=== PATIENT | male | born 1950 | race Caucasian/White ===

== ENCOUNTER 2023-06-16 03:09 | Observation (INO) | payer OTHER ==
--- OUTSIDE RECORDS SUMMARY | 2023-06-16 03:17 | XMS REPORT | Continuity of Care Document ---
Author Name Unknown Address [address] [place] [address] [facility] thconnect Address [address] [place] [address] Care Team Providers Care Pesticide Applicator Name Role Phone CTR, [facility] Primary Care Physician U TOD Baez Attending Clinician Unavailable Tod Thomson MD Attending Clinician TOD THOMSON Admitting Clinician Unavailable Payers Payer Name Policy Type Policy Number Effective Date Expirati on Date Source FORMERLY [facility] [id number] 1998 00:00:00 Allergies, Adverse Reactions, Alerts Allergy Name Allergy Type Status Severity Reaction(s) Onset Date Inactive Date Treating Clinician Comments Source NO KNOWN ALLERGIE S Drug Class Active [facility] Social History Social Habit Start Date Stop Date Quantity Comments Source Sexual orientation U [facility] Sex Assigned At 1950 00:00:00 1950 00:00:00 [facility] Smoking Status Start Date Stop Date Source Tobacco smoking consumption unknown [facility] Medications Ordered Medication Name Filled Medication Name Start Date Stop Date Current Medication? Ordering Clinician Indication Dosage Frequency Signature (SIG) Comments Components Source iopamidol (ISOVUE 370-500 mL) injection 80 mL 04-02 17:15: 00 04-02 16:21 :00 No [id number] 80mL 80 mL, Intravenou s, ONCE, 1 dose, On Wed04/02/23 at 1115, Routine [facility] Procedures Procedure Date / Time Performed Performing Clinicia n Source CT ABDOMEN PELVIS W CONTRAST 2023-04-02 16:19:00 Tod Thomson [facility] NOTICE OF PRIVACY PRACTICES 2023-04-02 15:37:58 Doctor Unassigned, [place] [facility] CONSENT/REFUSAL FOR DIAGNOSIS AND TREATMENT 2023-04-02 15:37:41 Doctor Unassigned, [place] [facility] ASSIGNMENT OF BENEFITS 2023-04-02 15:37:25 Docto r Unassigned, [place] [facility] Encounters Start Date/Time End Date/Time Encounter Type Admission Type Attending Clinicians Care Facility Care Department Encounter ID Source 2023-04-02 09:39:21 2023-04-02 23:59:00 Outpatient R TOD THOMSON [facility] [id number] [facility] 2023-04-02 09:39:21 2023-04-02 23:59:00 Hospital Encounter Tod Thomson [facility] [id number] [facility] Results Test Description Test Time Test Comments Results Result Comments Source CT ABDOMEN PELVIS W CONTRAST 2023-03 17:05:[address] ABDOMEN PELVIS W CONTRAST HISTORY: 72 years-old; Male; presented with weight loss and abdominal pain. COMPARISON: None. TECHNIQUE AND FINDINGS: Contiguous axial imaging from the level of the lungbases through the pubic symphysis was performed after the uncomplicatedadministration of 80 cc of intravenous Omnipaque contrast. Coronal andsagittal reconstructions were obtained. ?Auto mA and/or iterativereconstruction were used to reduce radiation dose. FINDINGS: LOWER THORAX: 9 mm irregular nodule with adjacent pleural thickening andretraction is seen at the lingula. No cardiomegaly. LIVER: No focal hepatic lesions. Normal contour. GALLBLADDER AND BILIARY TREE: No intra or extrahepatic biliary ductaldilation. SPLEEN: Multiple calcified granulomas are seen in the spleen. PANCREAS: No ductal dilatation or masses ADRENAL GLANDS: No adrenal lesions. KIDNEYS: No hydronephrosis, or stones. Simple bilateral renal cysts areseen. Homogeneous and symmetrical enhancement. GI TRACT: No dilation or bowel wall thickening. Large amount of stoolburden is seen within the cecum, ascending colon and transverse colon up tothe splenic flexure. PERITONEUM AND RETROPERITONEUM: No free air or fluid collection. LYMPH NODES: No intra-abdominal or pelvic lymph node enlargement. PELVIS/BLADDER: Bladder is fully distended with no wall thickening.Enlarged prostate is noted. VESSELS: Diffuse atherosclerotic calcification of the intra-abdomiopelvicvasculature BONES AND SOFT TISSUES: No suspicious lytic or sclerotic bony lesions.Fat-containing left inguinal hernia is noted. [facility]
[2023-06-16] MEDS ORDERED: ONDANSETRON 4 MG/2 ML VIAL ONE (03:56)
[2023-06-16] MEDS ORDERED: MORPHINE 4 MG/ML SYR ONE (03:57)
[2023-06-16 04:29] LABS: Anion Gap 6.9 mEq/L (5.0-15.0); BUN Blood Urea Nitrogen 16 mg/dL (7-18); Bicarbonate 29 mEq/L (21-32); Glomerular Filtration Rate 94 ml/min (=/>90); Glucose Level 127 mg/dL (74-106); Potassium 3.9 mEq/L (3.5-5.1); Sodium Level 138 mEq/L (136-145); Troponin High Sensitivity 10.6 pg/mL (<58.9)
[2023-06-16 04:30] LABS: Absolute Eosinophils 0.1 K/uL (0-0.5); Absolute Lymphocytes (CBC) 1.3 K/uL (0.7-4.9); Absolute Neutrophil 9.7 K/uL (1.8-8.0); Basophils % 0.1 % (0-1.3); Eosinophils % 0.8 % (0-4.4); Hematocrit 42.9 % (39.6-49.0); Hemoglobin 14.2 g/dL (13.6-17.9); Lymphocytes % 10.6 % (15.3-44.8); MCH 28.7 pg (27.0-35.0); MCV 87.1 fL (80-100); MPV 8.1 fL (7.6-11.3); Monocytes % 8.2 % (3.3-12.3); Neutrophils % 80.3 % (41.7-73.7); Platelets 353 thou/uL (152-406); RBC Red Blood Cell Count 4.92 M/uL (4.33-5.43); Red Cell Distribution Width 13.4 % (12.1-15.2)
[2023-06-16 04:50] LABS: PT Prothrombin Time 10.9 SECONDS (9.5-12.5); Protime INR 0.99
[2023-06-16 05:00] LABS: ALT/SGPT 17 U/L (16-61); AST/SGOT 9 U/L (15-37); Albumin 3.5 g/dL (3.4-5.0); Albumin/Globulin Ratio 0.9 (1.1-1.8); Alkaline Phosphatase 105 U/L (45-117); Bilirubin Total 0.2 mg/dL (0.2-1.0); Globulin 3.7 g/dL (2.3-3.5); Magnesium 2.3 mg/dL (1.6-2.4); NT PRO-BNP 221 pg/mL (<125); Protein, Total 7.2 g/dL (6.4-8.2)
[2023-06-16 05:01] LABS: Bilirubin Direct < 0.1 mg/dL (0-0.2); Bilirubin Indirect, Calculated ND mg/dL (0.2-0.8)
[2023-06-16] MEDS ORDERED: METOCLOPRAMIDE 10 MG/2mL INJ ONE (05:44)
[2023-06-16] MEDS ORDERED: FENTANYL CITR 100 MCG/2 ML ONE (05:45)
[2023-06-16] MEDS ORDERED: ENOXAPARIN 60 MG/0.6 ML SQ ONE (05:46)
[2023-06-16] MEDS ORDERED: NA CHLORIDE 0.9% 1,000 ML ONE (05:46)
[2023-06-16 06:03] LABS: Thyroid Stimulating Hormone 0.463 uIU/mL (0.358-3.740)
--- NOTE | 2023-06-16 06:10 | ER ---
Nurse's Notes [facility] Name: Radames Kong Age: 72 yrs Sex: Male : 1950 Arrival Date: 06/16/2023 Time: 03:09 Bed 13 Private MD: Diagnosis: Unstable angina;Cocaine abuse Presentation: 06/15 03:25 Chief complaint: Patient states: CHEST PAIN WITH INSPIRATION STARTED AT 2300. jj7 Coronavirus screen: At this time, the client does not indicate any symptoms associated with coronavirus-19. Ebola Screen: No symptoms or risks identified at this time. Initial Sepsis Screen: Does the patient meet any 2 criteria? No. Patient's initial sepsis screen is negative. Does the patient have a suspected source of infection? No. Patient's initial sepsis screen is negative. Risk Assessment: Do you want to hurt yourself or someone else? Patient reports no desire to harm self or others. Onset of symptoms was June 15, 2023. 03:25 Method Of Arrival: EMS: [facility] j7 03:25 Acuity: OMAR 3 jj7 03:35 Care prior to arrival: Medication(s) given: ASA, 81 mg, x 3. jj7 Triage Assessment: 03:25 General: Appears in no apparent distress. uncomfortable, Behavior is calm, cooperative, jj7 appropriate for age. Pain: Complains of pain in chest. Cardiovascular: Reports chest pain, Capillary refill < 3 seconds Patient's skin is warm and dry. Historical: - Allergies: 03:38 No Known Allergies; jj7 - PMHx: 03:38 Hypertensive disorder; Cerebrovascular accident; Hypercholesterolemia; LEFT BLOCKED jj7 CAROTID; - PSHx: 03:38 Appendectomy; NECK; BACK; jj7 - Immunization history:: Adult Immunizations not up to date, Client reports having NOT received the Covid vaccine. Pneumococcal vaccine is not up to date, Flu vaccine is not up to date. - Infectious Disease History:: Denies. - Social history:: Smoking status: Patient reports the use of cigarette tobacco products, smokes one pack cigarettes per day. Patient/guardian denies using alcohol, street drugs, IV drugs. - Family history:: not pertinent. Screenin:25 [facility] ED Fall Risk Assessment (Adult) History of falling in the last 3 months, jj7 including since admission No falls in past 3 months (0 pts) Confusion or Disorientation No (0 pts) Intoxicated or Sedated No (0 pts) Impaired Gait No (0 pts) Mobility Assist Device Used No (0 pt) Altered Elimination No (0 pt) Score/Fall Risk Level 0 - 2 = Low Risk Oriented to surroundings, Maintained a safe environment, Educated pt \T\ family on fall prevention, incl call for assistance when getting out of bed. Abuse screen: Denies threats or abuse. Nutritional screening: No deficits noted. Tuberculosis screening: No symptoms or risk factors identified. Assessment: 03:25 Reassessment: SEE TRIAGE ASSESSSMENT. Pain: Complains of pain in chest Pain radiates to jj7 left arm Pain began 4 hours ago. Neuro: No deficits noted. Cardiovascular:. Cardiovascular: Reports chest pain. 04:00 General: Appears in no apparent distress. uncomfortable, Behavior is calm, cooperative. jw7 04:00 Pain: Complains of pain in chest Pain radiates to left arm Pain currently is 8 out of jw7 10 on a pain scale. Quality of pain is described as radiating, sharp, Pain began 4 hours ago. Is continuous. Neuro: Level of Consciousness is awake, alert, obeys commands, Oriented to person, place, time, situation. Cardiovascular: Heart tones S1 S2 present Capillary refill < 3 seconds Clubbing of nail beds is absent JVD is absent Patient's skin is warm and dry. Respiratory: Airway is patent Trachea midline Respiratory effort is even, unlabored, Respiratory pattern is regular, symmetrical. GI: Abdomen is flat, Bowel sounds present X 4 quads. Abd is soft and non tender X 4 quads. : No deficits noted. No signs and/or symptoms were reported regarding the genitourinary system. EENT: No deficits noted. No signs and/or symptoms were reported regarding the EENT system. Derm: Skin is intact, is healthy with good turgor, Skin is dry, Skin is normal, Skin temperature is warm. Musculoskeletal: Circulation, motion, and sensation intact. Range of motion: intact in all extremities. 05:00 Reassessment: Patient appears in no apparent distress at this time. No changes from jw7 previously documented assessment. Patient and/or family updated on plan of care and expected duration. Pain level reassessed. Patient is alert, oriented x 3, equal unlabored respirations, skin warm/dry/pink. 06:00 Reassessment: Patient appears in no apparent distress at this time. Patient and/or jw7 family updated on plan of care and expected duration. Pain level reassessed. Patient is alert, oriented x 3, equal unlabored respirations, skin warm/dry/pink. Patient states symptoms have improved. Vital Signs: 03:25 BP 159 / 67; Pulse 79; Resp 18; Temp 98.1; Pulse Ox 98% ; Weight 69.4 kg; Height 5 ft. j7 5 in. ; 04:00 BP 153 / 86; Pulse 79; Resp 19 S; Pulse Ox 98% on R/A; jw7 05:00 BP 126 / 49; Pulse 82; Resp 25 S; Pulse Ox 96% on R/A; jw7 06:30 BP 154 / 67; Pulse 93; Resp 21 S; Pulse Ox 96% on R/A; jw7 08:00 BP 142 / 66; Pulse 94; Resp 16; Temp 97.9; Pulse Ox 99% ; bp 03:25 Body Mass Index 25.46 (69.40 kg, 165.1 cm) j7 Jacqueline Coma Score: 06:10 Eye Response: spontaneous(4). Motor Response: obeys commands(6). Verbal Response: sp4 oriented(5). Total: 15. ED Course: 03:15 Patient has correct armband on for positive identification. Placed in gown. Bed in low pf1 position. Call light in reach. Side rails up X 1. 03:15 Client placed on continuous cardiac and pulse oximetry monitoring. NIBP monitoring pf1 applied. job foreman on. Door closed. Noise minimized. Moved to private room. Warm blanket given. Pillow given. 03:17 No provider procedures requiring assistance completed. EKG done, by ED staff, reviewed pf1 by Cornelius Cox MD. 03:22 Patient arrived in ED. sp4 03:22 Cornelius Cox MD is Attending Physician. sp4 03:25 Maintain EMS IV. Dressing intact. Good blood return noted. Site clean \T\ dry. Gauge \T\ jj 7 site: 20G RIGHT AC. 03:25 Arm band placed on right wrist. Patient placed in an exam room, on a stretcher, on jj7 production scheduler. EKG completed in triage. Results shown to MD. 03:25 Provided Education on: USE OF CALL WELCH. jj7 03:38 Triage completed. jj7 03:56 Basic Metabolic Panel Sent. pf1 03:56 CBC with Diff Sent. pf1 03:56 Troponin HS Sent. pf1 03:56 Initial lab(s) drawn, by ED staff, sent to lab. pf1 04:00 O2 via RA. jw7 04:01 Basic Metabolic Panel Sent. jj7 04:01 CBC with Diff Sent. jj7 04:01 Troponin HS Sent. jj7 04:15 CXR XRAY In Process Unspecified. EDMS 05:34 Marsha Arambula, RN is Primary Nurse. jw7 05:48 Initiated transfer to [place] but was declined due to capacity. rv1 06:09 Tan Akins is Hospitalizing Provider. sp4 07:24 Primary Nurse role handed off by Marsha Arambula, RN bp 07:24 Nigel Hall, SP is Primary Nurse. bp 08:12 Patient admitted, IV remains in place. bp Administered Medications: 04:01 Drug: morphine IVP or IV 4 mg IVP once over 4 mins Route: IVP; Infused Over: 4 mins; jj7 Site: right antecubital; 06:00 Follow up: Response: No adverse reaction; Marked relief of symptoms; Pain is decreased jw7 04:02 Drug: Ondansetron IVP 4 mg IVP once; over 2 minutes Route: IVP; Site: right antecubital;jj7 06:00 Follow up: Response: No adverse reaction; Marked relief of symptoms; Nausea is decreasedjw7 06:09 Drug: metoCLOPramide IVP 10 mg IVP once; over 1 to 2 minutes Route: IVP; Site: right jw antecubital; 06:54 Follow up: Response: No adverse reaction; Marked relief of symptoms; Nausea is decreasedjw7 06:09 Drug: Enoxaparin Sub-Q 70 mg Sub-Q once Route: Sub-Q; Site: abdomen; jw7 06:54 Follow up: Response: No adverse reaction jw7 06:09 Drug: NS 0.9% IV 1000 ml IV at 75 ml/hr continuous Route: IV; Rate: 75 ml/hr; Site: jw right antecubital; 08:12 Follow up: IV Status: Infusion continued upon admission bp 06:10 Drug: fentaNYL (PF) IVP 50 mcg IVP once Route: IVP; Site: right antecubital; jw7 06:54 Follow up: Response: No adverse reaction; Marked relief of symptoms; Pain is decreased jw7 Medication: 03:25 VIS not applicable for this client. jj7 Outcome: 06:10 Decision to Hospitalize by Provider. sp4 08:11 Admitted to ER Hold. Please see [facility] for further documentation. bp 08:11 Condition: stable 08:11 Instructed on the need for admit, 08:58 Patient left the ED. iw Signatures: Dispatcher [employer] EDMS Sharita Sexton RN RN iw Nigel Hall RN RN Marsha Wyman RN RN Henry Mistry RN RN jjRobyn Hanson RN RN pf1 Pham Stewart rv1 Cornelius Cox MD MD sp4
--- NOTE | 2023-06-16 06:10 | EDPHYS ---
Physician Documentation [facility] Name: Radames Kong Age: 72 yrs Sex: Male : 1950 Arrival Date: 06/16/2023 Time: 03:09 Bed 13 Private MD: ED Physician Cornelius Cox HPI: 06/15 04:22 This 72 yrs old Male presents to ER via EMS with complaints of Chest Pain. sp4 06:10 72-year-old male with history of hypertension CVA hypercholesterolemia and also tobacco sp4 use disorder, presents with acute onset left-sided moderate sharp stabbing chest pain without physical exertion. Historical: - Allergies: 03:38 No Known Allergies; jj7 - PMHx: 03:38 Hypertensive disorder; Cerebrovascular accident; Hypercholesterolemia; LEFT BLOCKED jj7 CAROTID; - PSHx: 03:38 Appendectomy; NECK; BACK; jj7 - Immunization history:: Adult Immunizations not up to date, Client reports having NOT received the Covid vaccine. Pneumococcal vaccine is not up to date, Flu vaccine is not up to date. - Infectious Disease History:: Denies. - Social history:: Smoking status: Patient reports the use of cigarette tobacco products, smokes one pack cigarettes per day. Patient/guardian denies using alcohol, street drugs, IV drugs. - Family history:: not pertinent. ROS: 06:10 Constitutional: Negative for fever, chills, and weight loss, positive chest pain sp4 06:10 All other systems are negative, Exam: 06:10 Constitutional: This is a well developed, well nourished patient who is awake, alert, sp4 and in no acute distress. Head/Face: Normocephalic, atraumatic. Eyes: Pupils equal round and reactive to light, extra-ocular motions intact. Lids and lashes normal. Conjunctiva and sclera are not injected. Cornea within normal limits. Periorbital areas with no swelling, redness, or edema. ENT: Nares patent. No nasal discharge, no septal abnormalities noted. Tympanic membranes are normal and external auditory canals are clear. Oropharynx with no redness, swelling, or masses, exudates, or evidence of obstruction, uvula midline. Mucous membranes moist. Neck: Trachea midline, no thyromegaly or masses palpated, and no cervical lymphadenopathy. Supple, full range of motion without nuchal rigidity, or vertebral point tenderness. Chest/axilla: Normal chest wall appearance and motion. Nontender with no deformity. No lesions are appreciated. Cardiovascular: Regular rate and rhythm with a normal S1 and S2. No gallops, murmurs, or rubs. Normal PMI, no JVD. No pulse deficits. Respiratory: Lungs have equal breath sounds bilaterally, clear to auscultation and percussion. No rales, rhonchi or wheezes noted. No increased work of breathing, no retractions or nasal flaring. Abdomen/GI: Soft, with normal bowel sounds. No distension or tympany. No guarding or rebound. No evidence of tenderness throughout. Back: No spinal tenderness. No costovertebral tenderness. Skin: Warm, dry with normal turgor. Normal color with no rashes, no lesions, and no evidence of cellulitis. MS/ Extremity: Pulses equal, no cyanosis. Neurovascular intact. Full, normal range of motion. Neuro: Awake and alert, GCS 15, oriented to person, place, time, and situation. Cranial nerves II-XII grossly intact. Motor strength 5/5 in all extremities. Sensory grossly intact. Psych: Awake, alert, with orientation to person, place and time. Behavior, mood, and affect are within normal limits 06:10 ECG was reviewed by the Attending Physician. EKG time 0 317 normal sinus rhythm at rate of 82, otherwise unremarkable Vital Signs: 03:25 BP 159 / 67; Pulse 79; Resp 18; Temp 98.1; Pulse Ox 98% ; Weight 69.4 kg; Height 5 ft. [facility] 5 in. ; 04:00 BP 153 / 86; Pulse 79; Resp 19 S; Pulse Ox 98% on R/A; jw7 05:00 BP 126 / 49; Pulse 82; Resp 25 S; Pulse Ox 96% on R/A; jw7 06:30 BP 154 / 67; Pulse 93; Resp 21 S; Pulse Ox 96% on R/A; jw7 08:00 BP 142 / 66; Pulse 94; Resp 16; Temp 97.9; Pulse Ox 99% ; bp 03:25 Body Mass Index 25.46 (69.40 kg, 165.1 cm) [facility] Jacqueline Coma Score: 06:10 Eye Response: spontaneous(4). Motor Response: obeys commands(6). Verbal Response: sp4 oriented(5). Total: 15. MDM: 04:22 Patient medically screened. sp4 05:08 ED course: CLINICAL HISTORY: CHEST PAIN COMPARISON: None. TECHNIQUE: XR CHEST 1 VIEW sp4 06/16/2023 4:03 AM CDT FINDINGS: Cardiac silhouette is normal in size. Lungs are clear without consolidation, atelectasis, mass or edema. There is no pleural effusion. There is no pneumothorax. There are no acute osseous findings. IMPRESSION: Clear lungs. Electronically signed by: Chaim Anguiano MD 06/16/2023 04:49 AM. 05:43 ED course: CLINICAL HISTORY: CHEST PAIN COMPARISON: None. TECHNIQUE: XR CHEST 1 VIEW 4 06/16/2023 4:03 AM CDT FINDINGS: Cardiac silhouette is normal in size. Lungs are clear without consolidation, atelectasis, mass or edema. There is no pleural effusion. There is no pneumothorax. There are no acute osseous findings. IMPRESSION: Clear lungs. . 06:10 Differential diagnosis: acute myocardial infarction, acute pericarditis, anxiety, sp4 coronary artery disease chest wall pain, congestive heart failure. HEART Score: History: Moderately Suspicious (1), ECG: Non specific repolarization disturbance / LBTB / PM (1), Age: > or = 65 years (2), Risk Factors: > or = 3 Risk factors for atherosclerotic disease (2), Troponin: < or = 1 x Normal Limit (0), Total Score = 6. The patient was not given aspirin in the Emergency Department. Administered by EMS. Data reviewed: vital signs, nurses notes, EMS record, lab test result(s), EKG, radiologic studies, plain films. Consideration of Admission/Observation Patient was admitted/placed on observation. Escalation of care including admission/observation considered. Management of patient was discussed with the following: Hospitalist: Admission team. Theology Professor: Bowstring Maker. ED course: Patient warrants admission for further investigation hospital. 06/15 03:23 Order name: Basic Metabolic Panel; Complete Time: 06:08 pf1 06/15 03:23 Order name: CBC with Diff; Complete Time: 04:57 pf1 06/15 03:23 Order name: Troponin HS; Complete Time: 06:08 pf1 06/15 04:23 Order name: PT-INR; Complete Time: 04:57 sp4 06/15 04:49 Order name: Liver (Hepatic) Function; Complete Time: 06:08 EDMS 06/15 04:49 Order name: NT PRO-BNP; Complete Time: 06:08 EDMS 06/15 04:49 Order name: Magnesium; Complete Time: 06:08 EDMS 06/15 05:18 Order name: Urine Drug Screen; Complete Time: 06:34 sp4 06/15 05:18 Order name: Alcohol Level; Complete Time: 06:03 sp4 06/15 05:45 Order name: T4 Free; Complete Time: 06:08 EDMS 06/15 05:45 Order name: Thyroid Stimulating Hormone; Complete Time: 06:08 EDMS 06/15 08:37 Order name: Lipid Profile EDMS 06/15 04:03 Order name: CXR XRAY jj7 06/15 03:23 Order name: EKG; Complete Time: 03:23 pf1 06/15 03:23 Order name: Cardiac monitoring; Complete Time: 03:32 pf1 06/15 03:23 Order name: EKG - Nurse/Tech; Complete Time: 03:23 pf1 06/15 03:23 Order name: IV Saline Lock; Complete Time: 03:47 pf1 06/15 03:23 Order name: Labs collected and sent; Complete Time: 03:56 pf1 06/15 03:23 Order name: O2 Per Protocol; Complete Time: 03:32 pf1 06/15 03:23 Order name: O2 Sat Monitoring; Complete Time: 03:32 pf1 EC:10 Rate is 82 beats/min. Rhythm is regular, Normal Sinus Rhythm. QRS [place] is Normal. MT sp4 interval is normal. QRS interval is normal. No Q waves. T waves are Normal. No ST changes noted. Clinical impression: No evidence of ischemia. Interpreted by me. Reviewed by me. Administered Medications: 04:01 Drug: morphine IVP or IV 4 mg IVP once over 4 mins Route: IVP; Infused Over: 4 mins; jj7 Site: right antecubital; 06:00 Follow up: Response: No adverse reaction; Marked relief of symptoms; Pain is decreased jw7 04:02 Drug: Ondansetron IVP 4 mg IVP once; over 2 minutes Route: IVP; Site: right antecubital;jj7 06:00 Follow up: Response: No adverse reaction; Marked relief of symptoms; Nausea is decreasedjw7 06:09 Drug: metoCLOPramide IVP 10 mg IVP once; over 1 to 2 minutes Route: IVP; Site: right jw7 antecubital; 06:54 Follow up: Response: No adverse reaction; Marked relief of symptoms; Nausea is decreasedjw7 06:09 Drug: Enoxaparin Sub-Q 70 mg Sub-Q once Route: Sub-Q; Site: abdomen; jw7 06:54 Follow up: Response: No adverse reaction jw 06:09 Drug: NS 0.9% IV 1000 ml IV at 75 ml/hr continuous Route: IV; Rate: 75 ml/hr; Site: jw7 right antecubital; 08:12 Follow up: IV Status: Infusion continued upon admission bp 06:10 Drug: fentaNYL (PF) IVP 50 mcg IVP once Route: IVP; Site: right antecubital; jw7 06:54 Follow up: Response: No adverse reaction; Marked relief of symptoms; Pain is decreased jw7 Disposition Summary: 06/16/23 06:10 Hospitalization Ordered Notes: Hospitalization Status: Inpatient Admission sp4 Provider: Tan Akins spAllie Condition: Stable sp4 Problem: new sp4 Symptoms: have improved sp4 Bed/Room Type: Standard sp4 Location: Telemetry/MedSurg (Inpatient)(06/16/23 08:27) Room Assignment: 413(06/16/23 08:27) bd Diagnosis - Unstable angina sp4 - Cocaine abuse sp4 Forms: - Medication Reconciliation Form sp4 - SBAR form sp4 - Leadership Thank You Letter sp4 Signatures: Dispatcher [employer] EDMS Pat Hernandez Jodi, RN RN jw7 Henry Mcfarland RN RN jj7 Robyn Kang RN RN pf1 Cornelius Cox MD MD sp4 Nigel Hall RN bp Corrections: (The following items were deleted from the chart) 04:03 04:03 Chest Single View+RAD.RAD.BRZ ordered. EDMS EDMS 04:49 04:23 HEPATIC FUNCTION+C.LAB.BRZ ordered. EDMS EDMS 04:49 04:23 MAGNESIUM+C.LAB.BRZ ordered. EDMS EDMS 04:49 04:23 PROBNP+C.LAB.BRZ ordered. EDMS EDMS 05:18 05:18 URINE DRUG SCREEN+UC.LAB.BRZ ordered. EDMS EDMS 05:18 05:18 ETHANOL+C.LAB.BRZ ordered. EDMS EDMS 05:44 05:18 THYROID STIMULAT HORMONE+C.LAB.BRZ ordered. EDMS EDMS 05:44 05:18 T4 FREE+C.LAB.BRZ ordered. EDMS EDMS 07:15 06:10 Telemetry/MedSurg (Inpatient) sp4 bd 07:15 06:10 sp4 bd 08:27 07:15 [facility] ER HOLD bd bd 08:27 07:15 ERHOLD- bd bd
[2023-06-16 06:32] LABS: Barbiturates NEGATIVE (NEGATIVE); Benzodiazepines NEGATIVE (NEGATIVE); Cocaine POSITIVE (NEGATIVE); METHAMPHETAM NEGATIVE (NEGATIVE); Methadone NEGATIVE (NEGATIVE); Opiates NEGATIVE (NEGATIVE); Phencyclidine NEGATIVE (NEGATIVE); THC Cannibis POSITIVE (NEGATIVE)
[2023-06-16] MEDS ORDERED: NITROGLYCERIN 0.4 MG/TAB SL PRN (07:22)
--- NOTE | 2023-06-16 07:40 | P.HP ---
Certification for Inpatient Patient admitted to: Observation With expected LOS: <2 Midnights Practitioner: I am a practitioner with admitting privileges, knowledge of patient current condition, hospital course, and medical plan of care. Services: Services provided to patient in accordance with Admission requirements found in Title 42 Section 412.3 of the Code of Federal Regulations Patient History Date of Service: 06/16/23 Reason for admission: Chest pain/tightness History of Present Illness: Patient is a 72-year-old male with a past medical history of hypertension, hyperlipidemia COPD who presented to the ED with complaints of chest pain at rest. Pain does not radiate, worsened on inspiration. Associated with shortness of breath. He denies having chest pain in the past. Initial troponin negative, BNP 221. Patient is an every day smoker about 1 pack/day, he denies any illicit drug use however his urine drug screen positive for cocaine and THC. ED provider wishes to admit for unstable angina. Allergies tramadol Adverse Reaction (Verified 06/16/23 07:11) Home medications list reviewed: Yes (Patient does not know the names of his medications) - Past Medical/Surgical History Has patient received pneumonia vaccine in the past: No Diabetic: No -: Hypertension -: Hyperlipidemia -: COPD -: CVA Past Surgical History: Patient denies surgical history -: Appendectomy - Social History Smoking Status: Heavy Tobacco smoker (>10 cigarettes/day) Alcohol use: No CD- Drugs: No Caffeine use: Yes Place of Residence: Home Review of Systems 10-point ROS is otherwise unremarkable Respiratory: Shortness of Breath Cardiovascular: Chest Pain Physical Examination - Physical Exam General: Alert, In no apparent distress, Oriented x3 HEENT: Atraumatic, Normocephalic Respiratory: Clear to auscultation bilaterally, Normal air movement, Other (Unlabored respirations on room air) Gastrointestinal: Normal bowel sounds, Soft and benign, No tenderness Musculoskeletal: No swelling Integumentary: No rashes, No breakdown Neurological: Normal speech, Normal strength at 5/5 x4 extr - Studies Laboratory Data (last 24 hrs) 06/16/23 06/16/23 06/16/23 04:23 03:54 03:54 WBC 12.00 H Hgb 14.2 Hct 42.9 Plt Count 353 PT 10.9 INR 0.99 Sodium Potassium BUN Creatinine Glucose Magnesium Cancelled Total Bilirubin Cancelled AST Cancelled ALT Cancelled Alkaline Phosphatase Cancelled 06/16/23 03:54 WBC Hgb Hct Plt Count PT INR Sodium 138 Potassium 3.9 BUN 16 Creatinine 0.81 Glucose 127 H Magnesium 2.3 Total Bilirubin 0.2 AST 9 L ALT 17 Alkaline Phosphatase 105 Assessment and Plan - Plan Problem list Unstable angina Hypertension Hyperlipidemia COPD Unstable angina -chest pain likely secondary to cocaine use -EKG normal -Serial troponins q6h - supplemental O2 as needed; Nitroglycerin PRN; Aspirin daily - statin therapy - lipid panel pending - Obtain echo - Cardiology consulted Hypertension Hyperlipidemia -Verify home medications prior to restart Dispo Home in 24 hours Full code - Advance Directives Does patient have a Living Will: No Does patient have a Durable POA for Healthcare: No Time Spent Managing Pts Care (In Minutes): 55
[2023-06-16 07:57] VITALS: BMI 22.6
[2023-06-16 09:44] VITALS: O2SAT 98
[2023-06-16] MEDS ORDERED: MORPHINE 4 MG/ML SYR IV PRN (10:00)
--- NOTE | 2023-06-16 10:29 | RAD REPORT ---
EXAM DESCRIPTION: RAD - Chest Single View - 06/16/2023 4:13 am CLINICAL HISTORY: CHEST PAIN COMPARISON: None. TECHNIQUE: XR CHEST 1 VIEW 06/16/2023 4:03 AM CDT FINDINGS: Cardiac silhouette is normal in size. Lungs are clear without consolidation, atelectasis, mass or edema. There is no pleural effusion. There is no pneumothorax. There are no acute osseous fin dings. IMPRESSION: Clear lungs. Electronically signed by: Chaim Anguiano MD 06/16/2023 04:49 AM CDT Due to temporary technical issues with the PACS/Fluency reporting system, reports are being signed by the in house radiologist without review as a courtesy to ensure prompt reporting. The interpreting r adiologist is fully responsible for the content of the report.
--- NOTE | 2023-06-16 11:22 | P.CNS ---
Date of Consult: 06/16/23 Chief Complaint: Chest pain/tightness History of Present Illness: Patient with PMH of HTN, HLD drug abuse presented with chest pain, shart in nature that started last night, associated with SOB, no such symptoms in the past, no palpitations, no syncope, patient admit to marijuana and denies cocaine first but then he admitted that he sniff cocaine for the last 2 years as it helps him with stress. Allergies tramadol Adverse Reaction (Verified 06/16/23 07:11) - Past Medical/Surgical History Diabetic: No -: Hypertension -: Hyperlipidemia -: COPD -: CVA -: Appendectomy - Social History Smoking Status: Current every day smoker Alcohol use: No CD- Drugs: No Caffeine use: Yes Place of Residence: Home Review of Systems 10-point ROS is otherwise unremarkable Physical Examination Temp Pulse Resp BP Pulse Ox 97.9 F 94 H 16 142/66 H 93 06/16/23 08:00 06/16/23 08:00 06/16/23 08:00 06/16/23 08:00 06/16/23 07:36 General: Alert, Oriented x3 HEENT: Atraumatic Neck: Supple Respiratory: Clear to auscultation bilaterally Cardiovascular: No edema, Normal S1 S2 Gastrointestinal: Normal bowel sounds Laboratory Data (last 24 hrs) 06/16/23 06/16/23 06/16/23 05:54 04:23 03:54 WBC Hgb Hct Plt Count PT 10.9 INR 0.99 Sodium Potassium BUN Creatinine Glucose Magnesium Cancelled Total Bilirubin Cancelled AST Cancelled ALT Cancelled Alkaline Phosphatase Cancelled Triglycerides 119 Cholesterol 233 H HDL Cholesterol 55 Cholesterol/HDL Ratio 4.24 06/16/23 06/16/23 03:54 03:54 WBC 12.00 H Hgb 14.2 Hct 42.9 Plt Count 353 PT INR Sodium 138 Potassium 3.9 BUN 16 Creatinine 0.81 Glucose 127 H Magnesium 2.3 Total Bilirubin 0.2 AST 9 L ALT 17 Alkaline Phosphatase 105 Triglycerides Cholesterol HDL Cholesterol Cholesterol/HDL Ratio - Problems (1) Chest pain Current Visit: Yes Status: Acute Plan: Most likely secondary to recent cocaine and marijuana use, EKG is normal and Troponin negative. consulted patient in details about risks of drug use and that he need to stop. resume patient Norvasc and lisinopril for BP and angina. no need for further cardiac work up at this point. patient need to shows compliance with drug abstinence and taking medications before doing further cardiac work up which can be done as outpatient. (2) HTN (hypertension) Current Visit: Yes Status: Acute Plan: resume patient home dose of lisinopril and Norvasc. (3) HLD (hyperlipidemia) Current Visit: Yes Status: Acute Plan: LDL is elevated. Start Crestor 20 mg daily
--- NOTE | 2023-06-16 13:06 | EKG ---
Test Date: 2023-06-16 Test Time: 03:17:25 Certified Energy Manager: JAVI MEASUREMENT RESULTS: Intervals: Rate: 82 [place]: 154 QRSD: 92 QT: 350 QTc: 408 [place]: P: 72 [place]: 154 QRS: -52 T: 93 INTERPRETIVE STATEMENTS: Normal sinus rhythm Left anterior fascicular block Anteroseptal infarct, age undetermined T wave abnormality, consider lateral ischemia Abnormal ECG No previous ECG available for comparison Electronically Signed On 06-16-23 13:05:10 CDT by Jesu Em
--- NOTE | 2023-06-16 13:38 | ECHO ---
HEIGHT: 5 ft 5 in WEIGHT: 153 lb 0.013 oz DATE OF STUDY: 06/16/[address]: Lis Nevarez NP 2-DIMENSIONAL: YES M.MODE: YES DOPPLER: YES COLOR FLOW: YES TDS: PORTABLE: YES DEFINITY: BUBBLE STUDY: DIAGNOSIS: CHEST PAIN CARDIAC HISTORY: CATHERIZATION: NO SURGERY: NO PROSTHETIC VALVE: NO PACEMAKER: NO MEASUREMENTS (cm) DIASTOLIC (NORMALS) SYSTOLIC (NORMALS) IVSd 1.1 (0.6-1.2) LA Diam 1.9 (1.9-4.0) LVEF 53% LVIDd 3.3 (3.5-5.7) LVIDs 2.4 (2.0-3.5) %FS 27% LVPWd 1.2 (0.6-1.2) Ao Diam 3.0 (2.0-3.7) 2 DIMENSIONAL ASSESSMENT: RIGHT ATRIUM: NORMAL LEFT ATRIUM: NORMAL RIGHT VENTRICLE: NORMAL LEFT VENTRICLE: NORMAL TRICUSPID VALVE: MILD TRICUSPID REGURGITATION MITRAL VALVE: NORMAL PULMONIC VALVE: NORMAL AORTIC VALVE: NORMAL PERICARDIAL EFFUSION: NONE AORTIC ROOT: NORMAL LEFT VENTRICULAR WALL MOTION: NORMAL DOPPLER/COLOR FLOW: MILD TRICUSPID REGURGITATION COMMENTS: 1. NORMAL LEFT VENTRICULAR EJECTION FRACTION 55-60% 2. NORMAL WALL MOTION 3. GRADE I DIASTOLIC DYSFUNCTION 4. MILD TRICUSPID REGURGITATION TECHNOLOGIST: DANIEL COLLINS
[2023-06-16 16:51] VITALS: BP 149/63; TEMP 100
--- NOTE | 2023-06-16 18:26 | P.DS ---
Admission Date: 06/16/23 Discharge Date: 06/16/23 Reason for Admission: Chest pain/tightness Brief History of Present Illness: Patient is a 72-year-old male with a past medical history of hypertension, hyperlipidemia COPD who presented to the ED with complaints of chest pain at rest. Pain does not radiate, worsened on inspiration. Associated with shortness of breath. He denies having chest pain in the past. Initial troponin negative, BNP 221. Patient is an every day smoker about 1 pack/day, he denies any illicit drug use however his urine drug screen positive for cocaine and THC. ED provider wishes to admit for unstable angina. Hospital Course: Problem list Unstable angina Hypertension Hyperlipidemia COPD Presented with chest pain at rest. Troponins negative, BNP slightly elevated. EKG was normal. Cardiology was consulted for unstable angina. Urine drug screen positive for cocaine and THC. Chest pain likely secondary to cocaine use. Patient since has had improvement of chest pain without requiring nitro or morphine. Deemed stable for discharge. New medications -Crestor 20mg PO at bedtime Continue your home Norvasc and lisinopril Follow-ups -follow-up with your primary care physician within 1 week. Please call to schedule appointment. Consults: - Cardiology: Dr. Guaman Physical Exam General: Alert, In no apparent distress, Oriented x3 HEENT: Atraumatic, Normocephalic Respiratory: Clear to auscultation bilaterally, Normal air movement, Other (Unlabored respirations on room air) Gastrointestinal: Normal bowel sounds, Soft and benign, No tenderness Musculoskeletal: No swelling Integumentary: No rashes, No breakdown Neurological: Normal speech, Normal strength at 5/5 x4 extr <Lis Nevarez - Last Filed: 06/16/23 18:24> Admission Date: 06/16/23 Discharge Date: 06/17/23 Hospital Course: Plan of care discussed with Ms. Nevarez. Patient evaluated by cardiology Dr. Guaman, troponins x 3 negative, ACS ruled out. Patient toxicology screen was positive for cocaine and the chest pain might have been related to the cocaine use. Patient deemed stable for discharge per Dr. Guaman. <luz elena kent - Last Filed: 06/17/23 06:53> Disposition: ROUTINE DISCHARGE Discharge Condition: GOOD Vital Signs/Physical Exam: Temp Pulse Resp BP Pulse Ox 100 F 85 15 149/63 H 92 06/16/23 16:00 06/16/23 16:00 06/16/23 16:00 06/16/23 16:00 06/16/23 16:00 Laboratory Data at Discharge: WBC 12.00 thou/uL (4.3-10.9) H 06/16/23 03:54 Hgb 14.2 g/dL (13.6-17.9) 06/16/23 03:54 Hct 42.9 % (39.6-49.0) 06/16/23 03:54 Plt Count 353 thou/uL (152-406) 06/16/23 03:54 PT 10.9 SECONDS (9.5-12.5) 06/16/23 03:54 INR 0.99 06/16/23 03:54 Sodium 138 mEq/L (136-145) 06/16/23 03:54 Potassium 3.9 mEq/L (3.5-5.1) 06/16/23 03:54 BUN 16 mg/dL (7-18) 06/16/23 03:54 Creatinine 0.81 mg/dL (0.70-1.30) 06/16/23 03:54 Glucose 127 mg/dL (74-106) H 06/16/23 03:54 Magnesium Cancelled 06/16/23 04:23 Total Bilirubin Cancelled 06/16/23 04:23 AST Cancelled 06/16/23 04:23 ALT Cancelled 06/16/23 04:23 Alkaline Phosphatase Cancelled 06/16/23 04:23 Triglycerides 119 mg/dL (<150) 06/16/23 05:54 Cholesterol 233 mg/dL (<200) H 06/16/23 05:54 HDL Cholesterol 55 mg/dL (40-60) 06/16/23 05:54 Cholesterol/HDL Ratio 4.24 06/16/23 05:54 <Lis Nevarez - Last Filed: 06/16/23 18:24> Vital Signs/Physical Exam: Temp Pulse Resp BP Pulse Ox 100 F 85 15 149/63 H 92 06/16/23 16:00 06/16/23 16:00 06/16/23 16:00 06/16/23 16:00 06/16/23 16:00 Laboratory Data at Discharge: WBC 12.00 thou/uL (4.3-10.9) H 06/16/23 03:54 Hgb 14.2 g/dL (13.6-17.9) 06/16/23 03:54 Hct 42.9 % (39.6-49.0) 06/16/23 03:54 Plt Count 353 thou/uL (152-406) 06/16/23 03:54 PT 10.9 SECONDS (9.5-12.5) 06/16/23 03:54 INR 0.99 06/16/23 03:54 Sodium 138 mEq/L (136-145) 06/16/23 03:54 Potassium 3.9 mEq/L (3.5-5.1) 06/16/23 03:54 BUN 16 mg/dL (7-18) 06/16/23 03:54 Creatinine 0.81 mg/dL (0.70-1.30) 06/16/23 03:54 Glucose 127 mg/dL (74-106) H 06/16/23 03:54 Magnesium Cancelled 06/16/23 04:23 Total Bilirubin Cancelled 06/16/23 04:23 AST Cancelled 06/16/23 04:23 ALT Cancelled 06/16/23 04:23 Alkaline Phosphatase Cancelled 06/16/23 04:23 Triglycerides 119 mg/dL (<150) 06/16/23 05:54 Cholesterol 233 mg/dL (<200) H 06/16/23 05:54 HDL Cholesterol 55 mg/dL (40-60) 06/16/23 05:54 Cholesterol/HDL Ratio 4.24 06/16/23 05:54 <luz elena kent - Last Filed: 06/17/23 06:53> Diet: AHA Activity: Ad holley <Lis Nevarez - Last Filed: 06/16/23 18:24> <luz elena kent - Last Filed: 06/17/23 06:53> Home Medications: Rosuvastatin Calcium [Crestor] 20 mg PO BEDTIME 30 Days #30 tab 06/16/23 New Medications: Rosuvastatin Calcium [Crestor] 20 mg PO BEDTIME 30 Days #30 tab Physician Discharge Instructions: Presented with chest pain at rest. Troponins negative, BNP slightly elevated. EKG was normal. Cardiology was consulted for unstable angina. Urine drug screen positive for cocaine and THC. Chest pain likely secondary to cocaine use. Patient since has had resolution of chest pain. Deemed stable for discharge. New medications -Crestor 20mg PO at bedtime Continue your home Norvasc and lisinopril Follow-ups -follow-up with your primary care physician within 1 week. Please call to schedule appointment. Consults: - Cardiology: Dr. Guaman Followup: [facility] [Primary Care Provider] - 1-2 Weeks (Call for appointment.)
[2023-06-16] MEDS ORDERED: ATORVASTATIN 80 MG TAB PO SCH (21:00)
[2023-06-16] MEDS ORDERED: ROSUVASTATIN 10 MG TAB PO SCH (21:00)
[2023-06-17] MEDS ORDERED: ASPIRIN EC 81 MG TAB PO SCH (09:00)
[2023-06-17] MEDS ORDERED: ENOXAPARIN 40 MG/0.4 ML SQ SCH (09:00)
== END 2023-06-16 18:34 | disposition home or self-care (01) ==
LOC: ER 03:09 → ERHOLD 07:11 → 4TH 08:32
PROVIDERS: ADMIT Internal Medicine; ATTEND Internal Medicine
DX: I20.0 Unstable angina (principal); I10 Essential (primary) hypertension; E78.5 Hyperlipidemia, unspecified; J44.9 Chronic obstructive pulmonary disease, unspecified; R06.02 Shortness of breath; F17.210 Nicotine dependence, cigarettes, uncomplicated; F14.90 Cocaine use, unspecified, uncomplicated; F12.90 Cannabis use, unspecified, uncomplicated; Z88.5 Allergy status to narcotic agent
CPT/HCPCS: 96361; 93005; 93306; 85025; 80048; 36415; 83735; 85610; 80061; 80076; 84443; 84484 ×3; 84439; 83880; 80307; 71045; 96375; 96372; 96374; 99285; 82077; J1650; J2765; J3010; J2405; J7030; G0378 ×3